=== PATIENT | male | born 1990 | race Caucasian/White ===

== ENCOUNTER 2017-01-25 01:06 | Emergency (ER) | payer SELFPAY ==
[~2017-01-25] VITALS: Ht 180.3 cm; Wt 80.0 kg
[~2017-01-25 01:06] MED LIST: CILO0.3S EACH EYE; IBUP-232 PO; MMW SSP; PENI500T PO
[2017-01-25 01:09] VITALS: BP 160/87; PULSE 100; RESP 16; TEMP 98.3; O2SAT 99
--- NOTE | 2017-01-25 03:01 | PD ---
HPI . Right ear pain Chief Complaint: Respiratory Symptoms Time Seen by Provider: 02:43 Travel History International Travel<30 days: No Contact w/Intl Traveler<30days: No Traveled to known affect area: No History of Present Illness HPI This patient presents with the chief complaint of cold symptoms for 2 days. He states that he has not taken anything for it prior to arrival. He reports no exacerbating or relieving factors. He states that he has developed ear pain today which caused him to present to the emergency department. In addition, he has a cough. His not been running a fever. PFSH Past Medical History Immunizations Current: Yes Tetanus Vaccination: < 5 Years Influenza Vaccination: No Social History Alcohol Use: Yes (occ) Tobacco Use: Yes (2-3 cig.daily) Substance Use: No Allergies-Medications (Allergen,Severity, Reaction): Coded Allergies: No Known Allergies (Verified , 01/12/15) Reported Meds & Prescriptions Reported Meds & Active Scripts Active Ciloxan Ophth Soln (Ciprofloxacin) 0.3 % Ayana 1 Drop EACH EYE Q4HR Magic Mouthwash-Diphenhy Formula (Lidocaine/Diphenhydr/Alum/Mg/Simeth) Ml 5-10 Ml SSP 5 TIMES A DAY MAGIC MOUTHWASH CONTAINS 1/3 VISCOUS LIDOCAINE, 1/3 MAALOX, AND 1/3 BENADRYL. Pen Vk (Penicillin V Potassium) 500 Mg Tab 500 Mg PO QID Motrin (Ibuprofen) 600 Mg Tab 600 Mg PO QID GIVE WITH FOOD Review of Systems Except as stated in HPI: all other systems reviewed are Neg General / Constitutional: No: Fever, Chills Eyes: No: Drainage, Redness HENT: Positive: Earache Respiratory: Positive: Cough Physical Exam Narrative GENERAL: Patient is lying comfortably on the stretcher with his left leg over the side rail of the stretcher. SKIN: Warm and dry. HEAD: Atraumatic. Normocephalic. EYES: Pupils equal and round. No conjunctival injection or drainage. ENT: No nasal bleeding or discharge. Mucous membranes pink and moist. TMs are shiny fonseca with good light reflexes bilaterally. Nose has no drainage noted. Oropharynx pink and moist without erythema. NECK: Trachea midline. Neck is supple with no palpable cervical lymphadenopathy. CARDIOVASCULAR: Regular rate and rhythm. Heart sounds are normal. RESPIRATORY: No accessory muscle use. Lungs are clear with full air movement throughout. GASTROINTESTINAL: Abdomen soft, non-tender, nondistended. MUSCULOSKELETAL: No obvious deformities. No edema. NEUROLOGICAL: Awake and alert. No obvious cranial nerve deficits. Motor grossly within normal limits. Normal speech. PSYCHIATRIC: Appropriate mood and affect; insight and judgment normal. Data Data Last Documented VS Vital Signs Date Time Temp Pulse Resp B/P Pulse Ox O2 Delivery O2 Flow Rate FiO2 01/25/17 01:58 108 18 01/25/17 01:09 98.3 160/87 99 Room Air MDM Medical Decision Making Medical Screen Exam Complete: Yes Emergency Medical Condition: Yes Differential Diagnosis Differential diagnosis includes but is not limited to influenza, upper respiratory infection, bronchitis, pneumonia Narrative Course This patient presents with cold symptoms. He has a benign exam. He'll be discharged home with instructions to use symptomatic treatment as needed. Diagnosis Primary Impression: Upper respiratory infection Qualified Code: J06.9 - Upper respiratory tract infection, unspecified type Additional Instructions: Zyrtec, Yakelin or Claritin as needed for runny secretions. You may take pseudoephedrine as needed for congestion. You will need to sign for this at the pharmacy. You may take plain Mucinex, 1200 mg twice a day as needed for thick secretions. You may take a cough syrup such as Delsym as needed for cough. Motrin as needed for fever and body aches. Throat lozenges/sprays as needed for sore throat. Warm salt water gargles for sore throat. Hot tea with lemon and honey also helps soothe a sore throat. Disposition: 01 DISCHARGE HOME Condition: Stable Angelina Curran MD Jan 25, 2017 03:01
== END 2017-01-25 03:22 | disposition home or self-care (01) ==
LOC: NEPE 01:06
DX: J06.9 Acute upper respiratory infection, unspecified (principal); F17.210 Nicotine dependence, cigarettes, uncomplicated
CPT/HCPCS: 99282